=== PATIENT | female | born 1985 | race Caucasian/White ===

== ENCOUNTER → 2019-10-03 08:00 | Outpatient (BNVA) | payer SELFPAY | PROVIDERS: PCP Obstetrics & Gynecology; Visit Provider Obstetrics & Gynecology | DX: Z01.419 Encounter for gynecological examination (general) (routine) without abnormal findings (principal); E03.9 Hypothyroidism, unspecified | CPT/HCPCS: 36415; 80061; 84443 ==

== ENCOUNTER 2019-11-21 18:31 | Emergency (ER) | payer SELFPAY ==
[2019-11-21] VITALS (47 sets, daily range): BP systolic 123–139; BP diastolic 70–106; PULSE 78–104; RESP 11–20; TEMP 37.1; O2SAT 92–96; BMI 38.9
--- NOTE | 2019-11-21 19:18 | W.ED.GENADLT ---
HPI - General Adult General: Chief complaint: General Medical Stated complaint: passed out/flu symptoms Time Seen by Provider: 11/21/19 19:16 History of Present Illness: HPI narrative: Patient is a 34-year-old female who comes to the ED with nausea, vomiting and diarrhea. Symptoms started about 2 weeks ago. She states that she has not been able to eat or drink and keep anything down for the past 2 weeks. She is also complaining of some central abdominal pain that also radiates to the back. She has also had some upper respiratory symptoms such as a cough with green sputum and nasal congestion. Patient describes her vomiting is occurring multiple times a day for the past 2 weeks and also describes the diarrhea frequency the same. She feels like she is getting really dehydrated and that her mouth is really dry. She states that she could possibly be and compare some of her symptoms of nausea and vomiting to her previous first trimester pregnancies. Patient states she has monthly periods. Her last period was about 3 weeks ago. She denies any bloody vaginal discharge but does have some mucus discharge. Patient is felt so weak and dehydrated at these last 2 days she has passed out twice. Patient is also complaining of constipation and acid reflux for the last several months. She reports sometimes she cannot lay flat and has to elevate her head at night to sleep. She'll take Tums to help relieve some of the symptoms. She currently has reflux while she is here in the ED. Associated symptoms: Deny chest pain, dyspnea, headache(s), nausea, rash, palpitations or vomiting Review of Systems Const: Reports: fatigue; Denies: fever or chills Eyes: Denies: change in vision or eye discomfort ENMT: Reports: dry mouth and nasal congestion; Denies: throat pain, painful swallowing or nasal discharge Card: Denies: chest pain, palpitations, edema, swelling of feet/ankles, shortness of breath on exertion or shortness of breath when lying down Resp: Denies: shortness of breath, productive cough or non-productive cough GI: Reports: heartburn/indigestion; Denies: abdominal pain, nausea, vomiting, diarrhea, constipation or blood in stool : Denies: flank pain, painful urination or blood in urine Musc: Denies: neck pain, back pain or extremity swelling Skin/Breast: Denies: rash or new lesion Neuro: Denies: headache, numbness in extremities or weakness in extremities PFSH ED PFSH: Medical History Acquired hypothyroidism Social History Smoking and tobacco status: never smoked Physical Exam Const: COMMON NORMALS: oriented x3 HENMT: COMMON NORMALS: normocephalic HEAD & SCALP: normocephalic MOUTH: moist mucous membranes abnormal (Dry) Details: parched THROAT: posterior oropharynx normal and uvula midline Neck/C-Spine: COMMON NORMALS: supple GENERAL: Yes normal visual inspection Resp: COMMON NORMALS: normal respiratory effort, no retractions, no use of accessory muscles and clear to auscultation bilaterally AUSCULTATION: clear to auscultation bilaterally Cardio: COMMON NORMALS: regular rate, regular rhythm, S1 normal heart sound, S2 normal heart sound, no gallops, no clicks, no murmurs and peripheral pulses 2+ throughout RATE: regular rate RHYTHM: regular rhythm HEART SOUNDS: S1 normal and S2 normal PERIPHERAL PULSES: pulses 2+ throughout GI: COMMON NORMALS: normal to inspection, nondistended, normoactive bowel sounds, soft to palpation and no masses PALPATION: Yes soft and Yes tender (mild) Details: LUQ and RUQ : COMMON NORMALS: Yes no CVA tenderness BLADDER/KIDNEY EXAM: Yes no CVA tenderness Back/Pelvis: COMMON NORMALS: no CVA tenderness Extremity: COMMON NORMALS: normal to inspection and normal capillary refill Neuro: COMMON NORMALS: oriented x3 and moves all extremities Skin: COMMON NORMALS: no rashes or lesions noted GENERAL SKIN EXAM: no rashes or lesions noted and dry skin Course ED course: While here in the ED, patient was given 3 L of fluid and Zofran. She had no episodes of emesis while here in the ED. She reported feeling a lot better after the IV fluids. Vital Signs: Vital signs: Vital Signs Temperature 98.7 F 11/21/19 18:36 Pulse Rate 85 11/22/19 00:05 Respiratory Rate 13 11/21/19 22:30 Blood Pressure 123/70 11/22/19 00:00 Pulse Oximetry 94 11/22/19 00:05 [facility] - General Adult Lab Data: Attestation: I reviewed the patient's lab results. Labs: Lab Results 11/21/19 11/21/19 11/21/19 Range/Units 19:43 19:43 19:43 WBC 5.4 (4.0-10.0) 10^3/ uL RBC 5.24 (4.1-5.3) 10^6/u L Hgb 14.4 (11.5-15.3) g/dL Hct 43.7 (37.0-47.0) % MCV 83.4 (81-99) fL MCH 27.5 L (28.0-34.0) pg MCHC 33.0 (30.0-36.0) g/dL RDW 12.9 (12.1-15.1) % Plt Count 310 (130-400) 10^3/c mm MPV 9.5 (7.4-10.4) fL Neut % (Auto) 63.7 % Lymph % (Auto) 29.8 % [place] % (Auto) 6.1 % Eos % (Auto) 0.0 % Baso % (Auto) 0.2 % Neut # (Auto) 3.5 (1.8-7.7) 10^3/u L Lymph # (Auto) 1.6 (0.8-4.8) 10^3/u L [place] # (Auto) 0.3 (0.2-0.9) 10^3/u L Eos # (Auto) 0.0 (0.0-0.8) 10^3/u L Baso # (Auto) 0.0 (0.0-0.1) 10^3/u L Nucleated RBC % (a uto) 0 % Nucleated RBCs # 0.0 /100WBC Sodium 138 (136-145) mmol/L Potassium 3.0 L (3.5-5.1) mmol/L Chloride 99 (98-107) mmol/L Carbon Dioxide 21 L (22-29) mmol/L Anion Gap 21.0 H (5-19) BUN 10 (6-20) mg/dL Creatinine 0.8 (0.5-0.9) mg/dL GFR Calculation 83.1 L (90-130) mL/min Glucose 107 (65-115) mg/dL POC Glucose (70-110) mg/dL Calcium 9.7 (8.5-10.5) mg/dL Total Bilirubin 0.7 (0.15-1.2) mg/dL AST 41 H (0-32) U/L ALT 45 H (0-33) U/L Alkaline Phosphata se 65 (35-105) IU/L Total Protein 8.5 (6.6-8.7) g/dL Albumin 4.8 (3.5-5.2) g/dL Globulin 3.7 (1.3-4.6) g/dL Lipase 78 H (13-60) U/L HCG, Qual Negative (Negative) Urine Color (Yellow) Urine Appearance (CLEAR) Urine pH (5-7) Ur Specific Gravit y (1.005-1.030) Urine Protein (Negative) Urine Glucose (UA) (Normal) Urine Ketones (Negative) Urine Blood (Negative) Urine Nitrate (Negative) Urine Bilirubin (NEGATIVE) Urine Urobilinogen (Negative) mg/dL Ur Leukocyte Elizabeth ase (Negative) Urine RBC (0-2) /hpf Urine WBC (0-5) /hpf Ur Squamous Epith Cells (0-5) Urine Bacteria (NONE) 11/21/19 11/21/19 Range/Units 21:59 23:00 WBC (4.0-10.0) 10^3/ uL RBC (4.1-5.3) 10^6/u L Hgb (11.5-15.3) g/dL Hct (37.0-47.0) % MCV (81-99) fL MCH (28.0-34.0) pg MCHC (30.0-36.0) g/dL RDW (12.1-15.1) % Plt Count (130-400) 10^3/c mm MPV (7.4-10.4) fL Neut % (Auto) % Lymph % (Auto) % [place] % (Auto) % Eos % (Auto) % Baso % (Auto) % Neut # (Auto) (1.8-7.7) 10^3/u L Lymph # (Auto) (0.8-4.8) 10^3/u L [place] # (Auto) (0.2-0.9) 10^3/u L Eos # (Auto) (0.0-0.8) 10^3/u L Baso # (Auto) (0.0-0.1) 10^3/u L Nucleated RBC % (a uto) % Nucleated RBCs # /100WBC Sodium (136-145) mmol/L Potassium (3.5-5.1) mmol/L Chloride (98-107) mmol/L Carbon Dioxide (22-29) mmol/L Anion Gap (5-19) BUN (6-20) mg/dL Creatinine (0.5-0.9) mg/dL GFR Calculation (90-130) mL/min Glucose (65-115) mg/dL POC Glucose 88 (70-110) mg/dL Calcium (8.5-10.5) mg/dL Total Bilirubin (0.15-1.2) mg/dL AST (0-32) U/L ALT (0-33) U/L Alkaline Phosphata se (35-105) IU/L Total Protein (6.6-8.7) g/dL Albumin (3.5-5.2) g/dL Globulin (1.3-4.6) g/dL Lipase (13-60) U/L HCG, Qual (Negative) Urine Color Yellow (Yellow) Urine Appearance Hazy A (CLEAR) Urine pH 5 (5-7) Ur Specific Gravit y 1.005 (1.005-1.030) Urine Protein Trace (Negative) Urine Glucose (UA) Norm (Normal) Urine Ketones 2+ H (Negative) Urine Blood Neg (Negative) Urine Nitrate Negative (Negative) Urine Bilirubin Neg (NEGATIVE) Urine Urobilinogen Norm (Negative) mg/dL Ur Leukocyte Elizabeth ase Negative (Negative) Urine RBC 0-4 H (0-2) /hpf Urine WBC None (0-5) /hpf Ur Squamous Epith Cells 25-40 H (0-5) Urine Bacteria 1+ H (NONE) Imaging Data^: CT Abd/Pel: Attestation: I personally reviewed and interpreted this imaging study as follows: Radiologist's impression: [address] [address] [address] Scan Report Signed Patient: Kristen Ball Unit #: [id number] : 1985 Age/Sex: 34 / F ADM Date: 11/21/19 Loc: ER Room/Bed: Attending Dr: Ordering Provider/Ordering MD: Bao Bray Date of Service: 11/21/19 Procedure(s): CT abdomen pelvis w con* [id number] Accession Number(s): [id number] Report Number: [id number] PROCEDURE INFORMATION: Exam: CT Abdomen And Pelvis With Contrast Exam date and time: 11/21/2019 9:33 PM Age: 34 years old Clinical indication: Nausea and vomiting; Abdominal pain; Acute; Prior surgery; Surgery date: 6+ months; Surgery type: Cholecystectomy; Additional info: N/v/d and abdom pain TECHNIQUE: Imaging protocol: Computed tomography of the abdomen and pelvis with intravenous contrast. Total DLP: 1700.84 mGy-cm Radiation optimization: All CT scans at this facility use at least one of these dose optimization techniques: automated exposure control; mA and/or kV adjustment per patient size (includes targeted exams where dose is matched to clinical indication); or iterative reconstruction. Contrast material: OMNI 300; Contrast volume: 95 ml; Contrast route: 20G; COMPARISON: OB Limited [id number] 03/29/2018 11:37 AM FINDINGS: Mediastinum: A small hiatal hernia is noted. Liver: Normal. No mass. Gallbladder and bile ducts: The gallbladder has been removed. No biliary ductal dilatation. Pancreas: Normal. No ductal dilation. Spleen: Normal. No splenomegaly. Adrenals: Normal. No mass. Kidneys and ureters: Normal. No hydronephrosis. Stomach and bowel: Mild diffuse colonic wall thickening is appreciated. No intestinal obstruction. Appendix: The appendix is normal. Intraperitoneal space: Unremarkable. No free air. No significant fluid collection. Vasculature: Unremarkable. No abdominal aortic aneurysm. Lymph nodes: Unremarkable. No enlarged lymph nodes. Bladder: Unremarkable as visualized. Reproductive: The uterus and ovaries appear normal. Bones/joints: Unremarkable. No acute fracture. Soft tissues: Unremarkable. CT/CT abdomen pelvis w con* [id number] IMPRESSION: 1. Colitis, which may be infectious or inflammatory. 2. Small hiatal hernia. Radiation Dose CTDIVOL = (mGy): DLP = 1700.84 (mGy-cm) Dictated By: Billy Harris MD Signed By: Billy Harris MD Signed Date/Time: 11/21/192233 DD/ 32 Discharge Plan Discharge Patient Disposition: Home, Self-Care Clinical Impression: Colitis Acid reflux Qualifiers: Esophagitis presence: esophagitis presence not specified Qualified Code(s): K21.9 - Gastro-esophageal reflux disease without esophagitis Condition: Stable Prescriptions: New Zofran 4 mg tablet 4 mg PO Q8H Qty: 20 RF: 0 Flagyl 500 mg tablet 750 mg PO Q8H 7 Days Qty: 31.5 RF: 0 Nexium 20 mg capsule,delayed release(DR/EC) 20 mg PO DAILY Qty: 30 RF: 0 No Action levothyroxine 112 mcg tablet 112 mcg PO DAILY RF: 0 Tylenol 325 mg Tablet 325 mg PO QID PRN (Reason: Pain) RF: 0 ibuprofen 200 mg Tablet 200 mg PO Q6H PRN (Reason: Pain) RF: 0 Discharge Orders: Discharge Order (Routine); Ordered 11/21/19 Ordered By: Bao Bray Referrals: Oumar Haddad MD [Primary Care Provider] - Discharge Diet: Advance as tolerated Discharge Activity: Increase activity as tolerated Patient Instructions: Gastroesophageal Reflux Disease (ED), Infectious Colitis (ED) Activity Restrictions/Additional Instructions: Follow-up with your PCP in 7-10 days for reevaluation. Take the Zofran to help with nausea. Take the prescribed Nexium to help with acid reflux. Take the full course of antibiotic as prescribed. You can take Tylenol or ibuprofen if you have any fevers or pain. Drink plenty of fluids and stay hydrated. Return to the ED if vomiting and diarrhea cannot be controlled and you are showing signs of dehydration. Discharge Date/Time: 11/22/19 00:15 Coding Level of Care Code ED Car Wash Attendant for Shireen Fwd Exam Comprehensive
[2019-11-21] MEDS: sodium chloride 0.9% 1,000 ML 999 ML IV ×3 (19:50→23:16)
[2019-11-21 19:56] LABS: Basophils % 0.2 %; Hematocrit 43.7 % (37.0-47.0); Hemoglobin 14.4 g/dL (11.5-15.3); Lymphocytes # 1.6 10^3/uL (0.8-4.8); Lymphocytes % 29.8 %; Mean Corpuscular Hemoglobin 27.5 pg (28.0-34.0); Mean Corpuscular Volume 83.4 fL (81-99); Mean Platelet Volume 9.5 fL (7.4-10.4); Monocytes # 0.3 10^3/uL (0.2-0.9); Monocytes % 6.1 %; Neutrophils # 3.5 10^3/uL (1.8-7.7); Neutrophils % 63.7 %; Nucleated Red Blood Cells % 0 %; Platelet Count 310 10^3/cmm (130-400); Red Blood Count 5.24 10^6/uL (4.1-5.3); Red Cell Distribution Width 12.9 % (12.1-15.1); White Blood Count 5.4 10^3/uL (4.0-10.0)
[2019-11-21 20:17] LABS: Alanine Aminotransferase 45 U/L (0-33); Albumin Level 4.8 g/dL (3.5-5.2); Alkaline Phosphatase 65 IU/L (35-105); Aspartate Amino Transferase 41 U/L (0-32); Blood Urea Nitrogen 10 mg/dL (6-20); Calcium 9.7 mg/dL (8.5-10.5); Carbon Dioxide 21 mmol/L (22-29); Chloride 99 mmol/L (98-107); Globulin 3.7 g/dL (1.3-4.6); Glomerular Filtration Rate 83.1 mL/min (90-130); Glucose 107 mg/dL (65-115); Lipase 78 U/L (13-60); Sodium 138 mmol/L (136-145); Total Bilirubin 0.7 mg/dL (0.15-1.2); Total Protein 8.5 g/dL (6.6-8.7)
[2019-11-21 20:20] LABS: HCG, Serum Qual Negative (Negative)
--- NOTE | 2019-11-21 20:27 | XRR_ITS ---
PROCEDURE INFORMATION: Exam: XR Chest, 1 View Exam date and time: 11/21/2019 8:57 PM Age: 34 years old Clinical indication: Cough and fever; Prior surgery; Surgery date: 6+ months; Surgery type: Gb TECHNIQUE: Imaging protocol: XR of the chest Views: Frontal portable upright view of the chest. COMPARISON: CR Chest 2 views* [id number] 10/18/2013 7:32 PM FINDINGS: Lungs: The lungs are clear bilaterally. The pulmonary vasculature is normal. Pleural space: No pleural effusion. No pneumothorax. Heart/Mediastinum: The heart is normal in size and contour. Mediastinum: Stable. Bones/joints: Stable. XR/XR chest 1V portable [id number] IMPRESSION: No acute cardiopulmonary abnormality identified.
[2019-11-21] MEDS: ondansetron 2 mg/ML SDV 2 mL 4 MG IVP ×2 (20:44→23:14)
--- NOTE | 2019-11-21 21:16 | CTR_ITS ---
PROCEDURE INFORMATION: Exam: CT Abdomen And Pelvis With Contrast Exam date and time: 11/21/2019 9:33 PM Age: 34 years old Clinical indication: Nausea and vomiting; Abdominal pain; Acute; Prior surgery; Surgery date: 6+ months; Surgery type: Cholecystectomy; Additional info: N/v/d and abdom pain TECHNIQUE: Imaging protocol: Computed tomography of the abdomen and pelvis with intravenous contrast. Total DLP: 1700.84 mGy-cm Radiation optimization: All CT scans at this facility use at least one of these dose optimization techniques: automated exposure control; mA and/or kV adjustment per patient size (includes targeted exams where dose is matched to clinical indication); or iterative reconstruction. Contrast material: OMNI 300; Contrast volume: 95 ml; Contrast route: 20G; COMPARISON: OB Limited [id number] 03/29/2018 11:37 AM FINDINGS: Mediastinum: A small hiatal hernia is noted. Liver: Normal. No mass. Gallbladder and bile ducts: The gallbladder has been removed. No biliary ductal dilatation. Pancreas: Normal. No ductal dilation. Spleen: Normal. No splenomegaly. Adrenals: Normal. No mass. Kidneys and ureters: Normal. No hydronephrosis. Stomach and bowel: Mild diffuse colonic wall thickening is appreciated. No intestinal obstruction. Appendix: The appendix is normal. Intraperitoneal space: Unremarkable. No free air. No significant fluid collection. Vasculature: Unremarkable. No abdominal aortic aneurysm. Lymph nodes: Unremarkable. No enlarged lymph nodes. Bladder: Unremarkable as visualized. Reproductive: The uterus and ovaries appear normal. Bones/joints: Unremarkable. No acute fracture. Soft tissues: Unremarkable. CT/CT abdomen pelvis w con* [id number] IMPRESSION: 1. Colitis, which may be infectious or inflammatory. 2. Small hiatal hernia. Radiation Dose CTDIVOL = (mGy): DLP = 1700.84 (mGy-cm)
[2019-11-21] MEDS: iohexol 300 mg/mL 100 mL Btl IV (21:47)
--- NOTE | 2019-11-21 22:00 | PC.NURSE ---
accu check 88
[2019-11-21 22:02] LABS: Glucose Point of Care 88 mg/dL (70-110)
[2019-11-21] MEDS: lidocaine 2% viscous 15 ML, aluminum-mag hydrox-simethicon 30 ML, sucralfate oral liq 1 GM PO (23:14)
[2019-11-21] MEDS: metroNIDAZOLE 500 MG Tablet 750 MG PO (23:44)
[2019-11-21 23:51] LABS: Protein Urine Trace (Negative); Specific Gravity, Urine 1.005 (1.005-1.030); Urine Appearance Hazy (CLEAR); Urine Color Yellow (Yellow); pH Urine 5 (5-7)
[2019-11-21 23:52] LABS: Bilirubin Urine Neg (NEGATIVE); Blood Urine Neg (Negative); Glucose Urine UA Norm (Normal); Ketones Urine 2+ (Negative); Leukocyte Esterase Urine Negative (Negative); Nitrate Urine Negative (Negative); Urobilinogen Urine Norm (Negative)
[2019-11-22] VITALS: BP 123/70; PULSE 80; O2SAT 93
[2019-11-22] LABS: RBC Urine 0-4 /hpf (0-2)
[2019-11-22 00:01] LABS: Add Urine Culture? No; Bacteria Urine 1+; Squamous Epithelial Cell Urine 25-40 (0-5)
[2019-11-22 00:05] VITALS: PULSE 85; O2SAT 94
== END 2019-11-22 00:15 | disposition home or self-care (01) ==
PROVIDERS: Emergency Provider Physician Assistant; PCP Obstetrics & Gynecology
DX: K52.9 Noninfective gastroenteritis and colitis, unspecified (principal); K21.9 Gastro-esophageal reflux disease without esophagitis; E03.9 Hypothyroidism, unspecified
CPT/HCPCS: 36415; 36416; 71045; 74177; 80053; 81001; 82962; 83690; 84703; 85025; 87040; 96360; 96361; 96365; 96374; 96375; 99284; A9270; J2405; J7030; Q9967

== ENCOUNTER 2020-05-22 11:34 | Emergency (ER) | payer SELFPAY ==
[2020-05-22 12:28] VITALS: BP 167/89; PULSE 90; RESP 14; TEMP 36.9; O2SAT 99; BMI 42.5
--- NOTE | 2020-05-22 12:33 | XRR_ITS ---
PROCEDURE INFORMATION: Exam: XR Chest, 1 View Exam date and time: 05/22/2020 12:47 PM Age: 35 years old Clinical indication: Chest pain; Type not specified TECHNIQUE: Imaging protocol: XR of the chest Views: 1 view. COMPARISON: CR XR chest 1V portable [id number] 11/21/2019 8:45 PM FINDINGS: Lungs: Unremarkable. No consolidation. Pleural space: Unremarkable. No pleural effusion. No pneumothorax. Heart/Mediastinum: Unremarkable. No cardiomegaly. Bones/joints: Unremarkable. XR/XR chest 1V portable [id number] IMPRESSION: No acute findings.
--- NOTE | 2020-05-22 12:34 | ECG_ITS ---
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 Measurements Intervals [place] Rate: 91 P: 60 [place]: 156 QRS: 47 QRSD: 94 T: 4 QT: 364 QTc: 448 Interpretive Statements SINUS RHYTHM POSSIBLE LEFT ATRIAL ENLARGEMENT [-0.1mV P WAVE IN V1/V2] NONSPECIFIC T-WAVE ABNORMALITY No previous ECG available for comparison Electronically Signed On 05-22-2020 18:11:51 CDT by George Juarez M.D. [email or web address]
--- NOTE | 2020-05-22 12:41 | PC.NURSE ---
Patient placed in room at 1238, portable xray at bedside [id number]
[2020-05-22 12:53] VITALS: PULSE 81; RESP 18; O2SAT 98
[2020-05-22 12:55] LABS: Basophils # 0.1 10^3/uL (0.0-0.1); Basophils % 0.7 %; Eosinophils # 0.1 10^3/uL (0.0-0.8); Eosinophils % 1.9 %; Hematocrit 42.4 % (37.0-47.0); Hemoglobin 13.3 g/dL (11.5-15.3); Lymphocytes # 2.2 10^3/uL (0.8-4.8); Lymphocytes % 28.7 %; Mean Corpuscular HGB Conc 31.4 g/dL (30.0-36.0); Mean Corpuscular Volume 86.2 fL (81-99); Mean Platelet Volume 8.6 fL (7.4-10.4); Monocytes # 0.3 10^3/uL (0.2-0.9); Monocytes % 3.3 %; Neutrophils % 65.3 %; Nucleated Red Blood Cells % 0 %; Platelet Count 413 10^3/cmm (130-400); Red Blood Count 4.92 10^6/uL (4.1-5.3); White Blood Count 7.5 10^3/uL (4.0-10.0)
[2020-05-22 13:13] LABS: HCG, Serum Qual Negative (Negative)
[2020-05-22 13:16] LABS: Troponin(5th) Baseline 6 ng/L (0-10)
[2020-05-22 13:21] LABS: Alanine Aminotransferase 30 U/L (0-33); Albumin Level 4.8 g/dL (3.5-5.2); Alkaline Phosphatase 66 IU/L (35-105); Anion Gap 14.8 (5-19); Aspartate Amino Transferase 24 U/L (0-32); Blood Urea Nitrogen 6 mg/dL (6-20); Carbon Dioxide 22 mmol/L (22-29); Chloride 103 mmol/L (98-107); Globulin 3.7 g/dL (1.3-4.6); Glomerular Filtration Rate 115.1 mL/min (90-130); Glucose 93 mg/dL (65-115); Osmolality Calculated 277 mOsm/kg (285-295); Potassium 3.8 mmol/L (3.5-5.1); Sodium 136 mmol/L (136-145); Thyroid Stimulating Hormone 5.38 uIU/mL (0.27-4.20); Total Bilirubin 0.5 mg/dL (0.15-1.2); Total Protein 8.5 g/dL (6.6-8.7)
[2020-05-22 14:02] VITALS: BP 127/85; O2SAT 96
--- NOTE | 2020-05-22 14:03 | W.ED.CHESTPA ---
HPI - Chest Pain General: Chief Complaint: Chest Pain Stated Complaint: SOB CP Time Seen by Provider: 05/22/20 12:34 Source: patient Mode of arrival: ambulatory Limitations: no limitations History of Present Illness: HPI narrative: Patient is a 35-year-old female who presents to ED today with complaints of intermittent bilateral lower arm numbness and tingling over the past 2 months as well as chest pains over the past week. She states the pain in her chest feels like a tight, squeezing, electric sensation. She frequently refers to her heart as aching . She tells me she will often notice palpitations and when she checks her pulse will notice missed or skipped beats. She complains of shortness of breath stating it is oftentimes hard to catch her breath. She was initially seen at a primary care provider's office earlier today and was noted to be hypertensive. Patient states she has no history of hypertension nor does she treat this. She complains of some mild lower extremity swelling. She has not been running fevers. She has no known cardiac or pulmonary history. Patient admittedly is very anxious and a worry wart . MD complaint: chest pain Associated symptoms: Reports dyspnea and palpitations; Deny abdominal pain, fever(s), nausea, syncope or vomiting Review of Systems Const: Denies: fever(s) or chills Eyes: Denies: change in vision or blurry vision ENMT: Denies: throat pain, enlarged tonsils or odynophagia Card: Reports: chest pain, palpitations, irregular heart rhythm, edema and swelling of feet/ankles; Denies: lightheadedness, syncope, pre-syncope, dyspnea on exertion, orthopnea, leg pain with exertion or acrocyanosis Resp: Reports: dyspnea; Denies: productive cough, non-productive cough, pain on inspiration, hemoptysis or chest congestion GI: Denies: abdominal pain, nausea, vomiting, heartburn or diarrhea : Denies: flank pain, difficulty voiding, dysuria, urinary frequency, urinary urgency or urinary hesitancy Musc: Denies: neck pain, back pain, extremity pain, extremity swelling, joint pain or joint swelling Skin/Breast: Denies: rash Neuro: Reports: numbness in extremities (bilateral arms-intermittently); Denies: headache(s), weakness in extremities, frequent falls, dizziness, vertigo or Slurred speech present PFSH ED PFSH: Medical History (Updated 05/22/20 @ 15:46 by GREGG Figueredo) Acquired hypothyroidism Social History Smoking and tobacco status: never smoked Physical Exam Const: COMMON NORMALS: no acute distress, patient oriented x3, no limitations and alert GENERAL APPEARANCE: cooperative and anxious NUTRITIONAL APPEARANCE: obese ORIENTATION/CONSCIOUSNESS: Yes oriented to person, Yes oriented to place and Yes oriented to time HENMT: COMMON NORMALS: normocephalic and atraumatic HEAD & SCALP: normocephalic and atraumatic Neck/C-Spine: COMMON NORMALS: full ROM, no lymphadenopathy and no meningeal signs Chest: COMMONS NORMALS: normal inspection of the chest and normal palpation of entire chest wall Resp: COMMON NORMALS: normal respiratory effort and clear to auscultation bilaterally AUSCULTATION: clear to auscultation bilaterally Cardio: COMMON NORMALS: regular rate and regular rhythm RATE: regular rate RHYTHM: regular rhythm GI: COMMON NORMALS: Normal to inspection, nondistended, normoactive bowel sounds present, Soft to palpation, non-tender, No hepatosplenomegaly present and no masses PALPATION: Yes Soft to palpation and Yes No hepatosplenomegaly present : COMMON NORMALS: Yes no CVA tenderness BLADDER/KIDNEY EXAM: Yes no CVA tenderness Back/Pelvis: COMMON NORMALS: no CVA tenderness, thoracic and lumbar spine normal to inspection, no thoracic nor lumbar tenderness and thoraco-lumbar ROM normal Extremity: COMMON NORMALS: normal to inspection and full ROM GENERAL: Yes normal exam except as noted Neuro: CAROL COMA SCALE: document GCS findings Guthrie coma scale eye opening: Spontaneous Guthrie coma scale verbal response: Orientated Carol coma scale motor response: Obey commands Carol coma scale total score: 15 COMMON NORMALS: patient oriented x3 SENSORIUM/ORIENTATION: Yes alert, Yes oriented to person, Yes oriented to place and Yes oriented to time MENINGEAL SIGNS: Yes no meningeal signs Skin: COMMON NORMALS: no rashes or lesions noted GENERAL SKIN EXAM: no rashes or lesions noted Course Vital Signs: Vital signs: Vital Signs Temperature 98.4 F 05/22/20 12:28 Pulse Rate 106 H 05/22/20 15:59 Respiratory Rate 17 05/22/20 15:59 Blood Pressure 154/99 05/22/20 15:59 Pulse Oximetry 97 05/22/20 15:59 MDM - Chest Pain MDM Narrative: Medical decision making narrative: Patient's vitals apart from hypertension are normal. Labs are non-concerning at this time. She has a negative d-dimer. BNP is normal. Baseline and repeat troponin are normal. CXR is normal. EKG without ischemic changes. TSH is mildly elevated. At this time her HEART score is low enough for her to be discharged home. I will go ahead and place information with case management to get her set up with a Holter monitor. Recommend she follow-up with PCP for re-evaluation of her hypertension. Lab Data: Labs: Lab Results 05/22/20 05/22/20 05/22/20 Range/Units 12:48 12:48 12:48 WBC 7.5 (4.0-10.0) 10^3/ uL RBC 4.92 (4.1-5.3) 10^6/u L Hgb 13.3 (11.5-15.3) g/dL Hct 42.4 (37.0-47.0) % MCV 86.2 (81-99) fL MCH 27.0 L (28.0-34.0) pg MCHC 31.4 (30.0-36.0) g/dL RDW 13.0 (12.1-15.1) % Plt Count 413 H (130-400) 10^3/c mm MPV 8.6 (7.4-10.4) fL Neut % (Auto) 65.3 % Lymph % (Auto) 28.7 % [place] % (Auto) 3.3 % Eos % (Auto) 1.9 % Baso % (Auto) 0.7 % Neut # (Auto) 4.90 (1.8-7.7) 10^3/u L Lymph # (Auto) 2.2 (0.8-4.8) 10^3/u L [place] # (Auto) 0.3 (0.2-0.9) 10^3/u L Eos # (Auto) 0.1 (0.0-0.8) 10^3/u L Baso # (Auto) 0.1 (0.0-0.1) 10^3/u L Nucleated RBC % (a uto) 0 % Nucleated RBCs # 0.0 /100WBC D-Dimer (0-0.59) ug/mIFE U Sodium 136 (136-145) mmol/L Potassium 3.8 (3.5-5.1) mmol/L Chloride 103 (98-107) mmol/L Carbon Dioxide 22 (22-29) mmol/L Anion Gap 14.8 (5-19) BUN 6 (6-20) mg/dL Creatinine 0.6 (0.5-0.9) mg/dL GFR Calculation 115.1 (90-130) mL/min Glucose 93 (65-115) mg/dL Calculated Osmolal ity 277 L (285-295) mOsm/k g Calcium 9.0 (8.5-10.5) mg/dL Total Bilirubin 0.5 (0.15-1.2) mg/dL AST 24 (0-32) U/L ALT 30 (0-33) U/L Alkaline Phosphata se 66 (35-105) IU/L Troponin T Baselin e 6 (0-10) ng/L Troponin T 120 Min [place] (0-10) ng/L Delta Troponin T (0-10) ABS# NT-Pro-B Natriuret Pep (0-125) pg/mL Total Protein 8.5 (6.6-8.7) g/dL Albumin 4.8 (3.5-5.2) g/dL Globulin 3.7 (1.3-4.6) g/dL Lipase (13-60) U/L TSH 5.38 H (0.27-4.20) uIU/ mL HCG, Qual (Negative) 05/22/20 05/22/20 05/22/20 Range/Units 12:48 12:48 12:48 WBC (4.0-10.0) 10^3/ uL RBC (4.1-5.3) 10^6/u L Hgb (11.5-15.3) g/dL Hct (37.0-47.0) % MCV (81-99) fL MCH (28.0-34.0) pg MCHC (30.0-36.0) g/dL RDW (12.1-15.1) % Plt Count (130-400) 10^3/c mm MPV (7.4-10.4) fL Neut % (Auto) % Lymph % (Auto) % [place] % (Auto) % Eos % (Auto) % Baso % (Auto) % Neut # (Auto) (1.8-7.7) 10^3/u L Lymph # (Auto) (0.8-4.8) 10^3/u L [place] # (Auto) (0.2-0.9) 10^3/u L Eos # (Auto) (0.0-0.8) 10^3/u L Baso # (Auto) (0.0-0.1) 10^3/u L Nucleated RBC % (a uto) % Nucleated RBCs # /100WBC D-Dimer <= 0.27 (0-0.59) ug/mIFE U Sodium (136-145) mmol/L Potassium (3.5-5.1) mmol/L Chloride (98-107) mmol/L Carbon Dioxide (22-29) mmol/L Anion Gap (5-19) BUN (6-20) mg/dL Creatinine (0.5-0.9) mg/dL GFR Calculation (90-130) mL/min Glucose (65-115) mg/dL Calculated Osmolal ity (285-295) mOsm/k g Calcium (8.5-10.5) mg/dL Total Bilirubin (0.15-1.2) mg/dL AST (0-32) U/L ALT (0-33) U/L Alkaline Phosphata se (35-105) IU/L Troponin T Baselin e (0-10) ng/L Troponin T 120 Min [place] (0-10) ng/L Delta Troponin T (0-10) ABS# NT-Pro-B Natriuret Pep 47 (0-125) pg/mL Total Protein (6.6-8.7) g/dL Albumin (3.5-5.2) g/dL Globulin (1.3-4.6) g/dL Lipase (13-60) U/L TSH (0.27-4.20) uIU/ mL HCG, Qual Negative (Negative) 05/22/20 05/22/20 Range/Units 12:48 14:58 WBC (4.0-10.0) 10^3/ uL RBC (4.1-5.3) 10^6/u L Hgb (11.5-15.3) g/dL Hct (37.0-47.0) % MCV (81-99) fL MCH (28.0-34.0) pg MCHC (30.0-36.0) g/dL RDW (12.1-15.1) % Plt Count (130-400) 10^3/c mm MPV (7.4-10.4) fL Neut % (Auto) % Lymph % (Auto) % [place] % (Auto) % Eos % (Auto) % Baso % (Auto) % Neut # (Auto) (1.8-7.7) 10^3/u L Lymph # (Auto) (0.8-4.8) 10^3/u L [place] # (Auto) (0.2-0.9) 10^3/u L Eos # (Auto) (0.0-0.8) 10^3/u L Baso # (Auto) (0.0-0.1) 10^3/u L Nucleated RBC % (a uto) % Nucleated RBCs # /100WBC D-Dimer (0-0.59) ug/mIFE U Sodium (136-145) mmol/L Potassium (3.5-5.1) mmol/L Chloride (98-107) mmol/L Carbon Dioxide (22-29) mmol/L Anion Gap (5-19) BUN (6-20) mg/dL Creatinine (0.5-0.9) mg/dL GFR Calculation (90-130) mL/min Glucose (65-115) mg/dL Calculated Osmolal ity (285-295) mOsm/k g Calcium (8.5-10.5) mg/dL Total Bilirubin (0.15-1.2) mg/dL AST (0-32) U/L ALT (0-33) U/L Alkaline Phosphata se (35-105) IU/L Troponin T Baselin e (0-10) ng/L Troponin T 120 Min [place] 6.00 (0-10) ng/L Delta Troponin T 0 (0-10) ABS# NT-Pro-B Natriuret Pep (0-125) pg/mL Total Protein (6.6-8.7) g/dL Albumin (3.5-5.2) g/dL Globulin (1.3-4.6) g/dL Lipase 23 (13-60) U/L TSH (0.27-4.20) uIU/ mL HCG, Qual (Negative) Discharge Plan Discharge Patient Disposition: Home Clinical Impression: Non-cardiac chest pain, Heart palpitations Hypertension Qualifiers: Hypertension type: unspecified Qualified Code(s): I10 - Essential (primary) hypertension Condition: Stable Prescriptions: New metoprolol succinate 25 mg tablet extended release 24 hr 25 mg PO DAILY Qty: 30 RF: 0 No Action levothyroxine 112 mcg tablet 112 mcg PO DAILY RF: 0 acetaminophen [Tylenol] 325 mg Tablet 325 mg PO QID PRN (Reason: Pain) RF: 0 ibuprofen 200 mg Tablet 200 mg PO Q6H PRN (Reason: Pain) RF: 0 esomeprazole magnesium [Nexium] 20 mg capsule,delayed release(DR/EC) 20 mg PO DAILY Qty: 30 RF: 0 Zofran 4 mg tablet 4 mg PO Q8H PRN (Reason: Nausea) RF: 0 Discharge Orders: Discharge Order (Routine); Ordered 05/22/20 Ordered By: Sharri Navarrete Referrals: Belkys Diaz MD [Primary Care Provider] - Patient Instructions: Heart Palpitations, Hypertension (ED), Noncardiac Chest Pain (ED) Activity Restrictions/Additional Instructions: As discussed I have placed your information with case management to get you set up with a Holter monitor. They should be in contact with you shortly. We will have these results faxed to Dr. Diaz. Please follow-up with their office for further evaluation of your high blood pressure. I will place you on a low-dose of metoprolol which should help with your blood pressure as well as your heart palpitations. Please keep a blood pressure log (take blood pressure once in the morning and once in the evening) to discuss with Dr. Diaz so she may adjust medications as needed. 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
[2020-05-22 14:19] LABS: D Dimer <= 0.27 ug/mIFEU (0-0.59)
[2020-05-22 14:30] VITALS: BP 140/100; O2SAT 97
--- NOTE | 2020-05-22 14:34 | ECG_ITS ---
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 Measurements Intervals [place] Rate: 86 P: 59 RI: 160 QRS: 39 QRSD: 89 T: 18 QT: 374 QTc: 448 Interpretive Statements SINUS RHYTHM NONSPECIFIC T-WAVE ABNORMALITY Compared to ECG 05/22/2020 12:26:11 No significant changes Electronically Signed On 05-22-2020 18:17:27 CDT by George Juarez M.D. [id number] f
[2020-05-22 14:45] LABS: NT Pro B Type Natriuretic Pept 47 pg/mL (0-125)
[2020-05-22 14:54] LABS: Lipase 23 U/L (13-60)
[2020-05-22 15:38] LABS: Troponin 5 2HR Delta 0 ABS# (0-10)
[2020-05-22 15:59] VITALS: BP 154/99; PULSE 106; RESP 17; O2SAT 97
--- NOTE | 2020-05-23 16:41 | DCPLANNER ---
environmental services manager had message to schedule a halter monitor for patient. environmental services manager faxed order to [facility], will call for appointment information.
--- NOTE | 2020-05-24 15:34 | DCPLANNER ---
Patient has a follow up appointment scheduled for Wednesday, May 27, 2020 at 2:30. Clinic will call patient with appointment information.
--- NOTE | 2020-06-11 13:46 | DCPLANNER ---
Patient had an appointment scheduled for 05.27.20 with [facility] for a 24 hour monitor - patient did not attend appointment.
== END 2020-05-22 15:58 | disposition home or self-care (01) ==
PROVIDERS: Emergency Provider Physician Assistant; PCP Family Medicine
DX: R07.89 Other chest pain (principal); R00.2 Palpitations; I10 Essential (primary) hypertension
CPT/HCPCS: 12345; 36415; 71045; 80053; 83690; 83880; 84443; 84484; 84703; 85025; 85378; 93005; 99282; 99283

== ENCOUNTER 2021-03-18 06:42 | Outpatient (CLI) | payer OTHER, SELFPAY ==
--- NOTE | 2021-03-18 | USCV_ITS ---
GiacomoKristen lay Age: 35 Gender: F : 1985 Exam Date: 03/18/2021 07:27 Ordering Phys: Jarek Membreno DO Technologist: Adelina Botello Exam Location: [facility] [place] Indication: TACHY BP: 132 / 78 HR: 79 Rhythm: Sinus Technical Quality: Adequate MEASUREMENTS (Male / Female) Normal Values 2D ECHO LV Diastolic Diameter PLAX 3.5 cm 4.2 - 5.9 / 3.9 - 5.3 cm LV Systolic Diameter PLAX 2.1 cm LV Chamber Size 4.1 cm IVS Diastolic Thickness 0.9 cm 0.6 - 1.0 / 0.6 - 0.9 cm IVS Systolic Thickness 1.5 cm LVPW Diastolic Thickness 1.3 cm 0.6 - 1.0 / 0.6 - 0.9 cm LVPW Systolic Thickness 1.4 cm RV Chamber Size 2.5 cm LVOT Diameter 2.0 cm LV Ejection Fraction 2D Teich 69.9 % LV Ejection Fraction MOD 2C 41.6 % LV Ejection Fraction 2C AL 41.1 % LA Diameter 3.4 cm LA Width 3.1 cm LA Height 4.6 cm RA Width 3.0 cm RA Height 4.0 cm Aorta at Sinotubular Diameter 3.0 cm M-MODE LV Diastolic Diameter MM 5.3 cm 4.2 - 5.9 / 3.9 - 5.3 cm LV Systolic Diameter MM 3.5 cm LV Ejection Fraction MM Teich 63.6 % IVS Diastolic Thickness MM 0.7 cm 0.6 - 1.0 / 0.6 - 0.9 cm IVS Systolic Thickness MM 1.1 cm LVPW Diastolic Thickness MM 0.9 cm 0.6 - 1.0 / 0.6 - 0.9 cm LVPW Systolic Thickness MM 1.6 cm RV Diastolic Diameter MM 1.8 cm Aortic Annulus Diameter 3.1 cm LA Ao Ratio MM 1.2 MV E Point Septal Separation 0.7 cm DOPPLER AV Peak Velocity 135.3 cm/s LVOT Peak Velocity 90.7 cm/s AV Area Cont Eq vti 2.1 cm squared AV Area Cont Eq pk 2.1 cm squared MV Area PHT 3.3 cm squared Mitral E to A Ratio 1.5 MV E' Velocity 59.0 cm/s Mitral E to MV E' Ratio 8.3 Mitral E to LV E' Lateral Ratio 8.5 Mitral E to LV E' Septal Ratio 8.2 TR Peak Velocity 170.8 cm/s TR Peak Gradient 11.7 mmHg TR Mean Velocity 132.8 cm/s TR Mean Gradient 7.4 mmHg TR Velocity Time Integral 36.0 cm TV Peak E Velocity 65.7 cm/s Right Atrial Pressure 3.0 mmHg Pulmonary Artery Systolic Pressu 14.7 mmHg PV Peak Velocity 71.0 cm/s RV Acceleration Time 0.1 s RV Ejection Time 0.3 s RV AcT/ET 0.2 FINDINGS Left Ventricle Normal left ventricular size and systolic function, EF 56 %. No regional wall motion abnormalities. Right Ventricle The right ventricle is normal in size and function. Right Atrium The right atrium is normal in size. Left Atrium The left atrium is normal in size. Mitral Valve No gross abnormalities noted Aortic Valve No gross abnormalities noted. Tricuspid Valve No tricuspid valve regurgitation. Pulmonic Valve Pulmonic valve not well visualized. Pericardium Normal pericardium without effusion. Aorta Normal ascending aorta dimension. CONCLUSIONS Normal left ventricular size and systolic function, EF 56 %. No regional wall motion abnormalities. Normal chamber sizes. No tricuspid valve regurgitation. There is no pericardial effusion. There are no intracardiac masses. No previous study is available for comparison. Dr Nereyda Leon MD FACC (Electronically Signed) Final Date: 18 March 2021 18:59 S
== END 2021-03-18 06:43 | disposition home or self-care (01) ==
PROVIDERS: PCP Family Medicine; Visit Provider Electrodiagnostic Medicine
DX: R00.0 Tachycardia, unspecified (principal)
CPT/HCPCS: 93306

== ENCOUNTER 2023-02-02 09:00 | Outpatient (CLI) | payer OTHER, SELFPAY | END 2023-02-02 09:01 | disposition home or self-care (01) | LOC: SLEEP 02-03 09:19 | PROVIDERS: PCP Electrodiagnostic Medicine; Visit Provider Electrodiagnostic Medicine | DX: G47.33 Obstructive sleep apnea (adult) (pediatric) (principal); G47.10 Hypersomnia, unspecified | CPT/HCPCS: G0399 ==

== ENCOUNTER 2024-05-02 14:57 | Emergency (ER) | payer OTHER, SELFPAY ==
--- NOTE | 2024-05-02 14:59 | ECG_ITS ---
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 Measurements Intervals [place] Rate: 102 P: 55 MT: 131 QRS: 41 QRSD: 86 T: 42 QT: 338 QTc: 441 Interpretive Statements SINUS TACHYCARDIA POSSIBLE LEFT ATRIAL ENLARGEMENT [-0.1mV P-WAVE IN V1/V2] NONSPECIFIC ST & T-WAVE ABNORMALITY Compared to ECG 05/22/2020 14:33:13 Sinus rhythm no longer present T-wave abnormality still present Electronically Signed On 05-02-2024 18:10:40 CDT by George Juarez M.D. [id number]
--- NOTE | 2024-05-02 15:07 | XRR_ITS ---
PROCEDURE INFORMATION: Exam: XR Chest Exam date and time: 05/02/2024 3:43 PM Age: 39 years old Clinical indication: Pain; Angina pectoris; Additional info: Cp TECHNIQUE: Imaging protocol: Radiologic exam of the chest. Views: 1 view. COMPARISON: CR XR chest 1V portable [id number] 05/22/2020 12:54 PM FINDINGS: Lungs: No focal consolidation or other acute appearing pulmonary opacity. Pleural spaces: No pleural effusion or pneumothorax noted. Heart/Mediastinum: There is no cardiomegaly. Bones/joints: Unremarkable. No acute osseous abnormality. Intraperitoneal space: There is no free intraperitoneal gas. XR/XR chest 1V portable [id number] IMPRESSION: No acute cardiopulmonary disease.
[2024-05-02 15:12] VITALS: BP 145/88; PULSE 107; TEMP 37.2; O2SAT 98; BMI 48.6
[2024-05-02 15:51] LABS: Basophils # 0.1 10^3/uL (0.0-0.1); Basophils % 0.6 %; Eosinophils # 0.3 10^3/uL (0.0-0.8); Eosinophils % 3.2 %; Hematocrit 37.6 % (36-47); Lymphocytes # 2.3 10^3/uL (0.8-4.8); Lymphocytes % 26.4 %; Mean Corpuscular HGB Conc 29.8 g/dL (30-55); Mean Corpuscular Hemoglobin 22.5 pg (27-33); Mean Corpuscular Volume 75.5 fl (85-98); Mean Platelet Volume 8.6 fL (7.4-10.4); Monocytes # 0.4 10^3/uL (0.2-0.9); Monocytes % 4.2 %; Neutrophils # 5.57 10^3/uL (1.8-7.7); Neutrophils % 65.2 %; Nucleated Red Blood Cells % 0 %; Platelet Count 524 10^3/cmm (157-399); Red Blood Count 4.98 10^6/uL (3.85-5.65); Red Cell Distribution Width 16.2 % (12.1-15.1); White Blood Count 8.53 10^3/uL (3.29-11.43)
[2024-05-02 16:03] LABS: Troponin(5th) Baseline < 6 ng/L (0-10)
[2024-05-02 16:05] LABS: Alanine Aminotransferase 116 U/L (0-33); Albumin Level 4.7 g/dL (3.5-5.2); Alkaline Phosphatase 85 U/L (35-105); Anion Gap 19.3 (5-19); Aspartate Amino Transferase 99 U/L (0-32); Blood Urea Nitrogen 8 mg/dL (6-20); Carbon Dioxide 23 mmol/L (22-29); Chloride 101 mmol/L (98-107); Creatinine Clr Calc Pharmacy 164.8356; Globulin 3.8 g/dL (1.3-4.6); Glomerular Filtration Rate 112.5 mL/min (90-130); Glucose 105 mg/dL (65-115); Osmolality Calculated 287 mOsm/kg (285-295); Potassium 4.3 mmol/L (3.5-5.1); Sodium 139 mmol/L (136-145); Total Bilirubin 0.4 mg/dL (0.15-1.2); Total Protein 8.5 g/dL (6.6-8.7)
[2024-05-02 16:17] VITALS: BP 159/104; PULSE 108; O2SAT 97
--- NOTE | 2024-05-02 16:21 | W.ED.CHESTPA ---
HPI - Chest Pain General: Chief Complaint: Chest Pain Stated Complaint: CP Time Seen by Provider: 05/02/24 15:20 History of Present Illness: 39-year-old female presents emergency room complaining of intermittent palpitations and chest discomfort. She also had variations pain elevated blood pressure and hypotension earlier today she took her blood pressure at home and it was 70/40. She is on metoprolol and has been taking it regularly. She notes that certain position she will get more of a sensation of palpitations. She also has a history of hypothyroidism she has not recently changed her medication. No family history of early heart disease no history of DVT or PE she is not on any anticoagulants. Associated symptoms: Reports palpitations; Deny abdominal pain, dyspnea or fever(s) Review of Systems Const: Denies: fever(s) or chills Card: Reports: palpitations; Denies: chest pain Resp: Denies: dyspnea GI: Denies: abdominal pain : Denies: dysuria, urinary frequency or urinary urgency Musc: Denies: neck pain or back pain Skin/Breast: Denies: rash PFSH ED PFSH: Medical History Acquired hypothyroidism Hypertension Family History Other CAD (coronary artery disease) Hyperlipidemia Social History Smoking and tobacco/nicotine status: never used tobacco/nicotine Physical Exam Const: COMMON NORMALS: no acute distress GENERAL APPEARANCE: cooperative and comfortable ORIENTATION/CONSCIOUSNESS: Yes awake, Yes oriented to person, Yes oriented to place and Yes oriented to time HENMT: COMMON NORMALS: normocephalic, atraumatic and hearing grossly normal bilaterally HEAD & SCALP: normocephalic and atraumatic Resp: COMMON NORMALS: normal respiratory effort, No retractions, No use of accessory muscles and clear to auscultation bilaterally AUSCULTATION: clear to auscultation bilaterally Cardio: COMMON NORMALS: regular rate, regular rhythm and No murmurs present (Cardio) RATE: regular rate RHYTHM: regular rhythm GI: COMMON NORMALS: Soft to palpation and No hepatosplenomegaly present AUSCULTATION: Yes normoactive bowel sounds PALPATION: Yes Soft to palpation, No Tenderness to palpation present (GI), No Guarding due to palpation present (GI) and Yes No hepatosplenomegaly present Extremity: COMMON NORMALS: normal to inspection, capillary refill normal, no clubbing, cyanosis or edema, no calf tenderness and no pedal edema Neuro: SENSORIUM/ORIENTATION: Yes oriented to person, Yes oriented to place and Yes oriented to time Skin: COMMON NORMALS: no rashes or lesions noted GENERAL SKIN EXAM: no rashes or lesions noted Course Vital Signs: Vital signs: Vital Signs Temperature 99 F 05/02/24 15:12 Pulse Rate 108 H 05/02/24 16:17 Blood Pressure 159/104 05/02/24 16:17 Pulse Oximetry 97 05/02/24 16:17 Oxygen Delivery Me thod Room Air 05/02/24 16:17 MDM - Chest Pain Medical Decision Making Patient had some PACs I reviewed her Holter monitor from 3 years ago showed PACs but no arrhythmias. She is complaining of variations between low blood pressure and high blood pressure tachycardia and bradycardia. Will have her hold her hydrochlorothiazide decrease her metoprolol to half and add amlodipine to see if that helps hydrochlorothiazide may be aggravating things. I did discuss with her however that by history switching to a slightly lower dose of metoprolol for a time she may experience more of the PACs and PVCs. Strongly encouraged her to follow-up with her primary care doctor within the next 2 weeks to reevaluate medication adjustments will also set her up for another 72-hour Holter monitor to ensure there is no new underlying arrhythmias. Medical Records I reviewed the patient's medical records. Lab Data I reviewed the patient's lab results. 05/02/24 15:31 05/02/24 15:31 Laboratory Results WBC 8.53 10^3/uL (3.29-11.43) 05/02/24 15:31 RBC 4.98 10^6/uL (3.85-5.65) 05/02/24 15:31 Hgb 11.20 g/dL (11.27-16.99) L 05/02/24 15:31 Hct 37.6 % (36-47) 05/02/24 15:31 MCV 75.5 fl (85-98) L 05/02/24 15:31 MCH 22.5 pg (27-33) L 05/02/24 15:31 MCHC 29.8 g/dL (30-55) L 05/02/24 15:31 RDW 16.2 % (12.1-15.1) H 05/02/24 15:31 Plt Count 524 10^3/cmm (157-399) H 05/02/24 15:31 MPV 8.6 fL (7.4-10.4) 05/02/24 15:31 Neut % (Auto) 65.2 % 05/02/24 15: Lymph % (Auto) 26.4 % 05/02/24 15:31 [place] % (Auto) 4.2 % 05/02/24 15:31 Eos % (Auto) 3.2 % 05/02/24 15: Baso % (Auto) 0.6 % 05/02/24 15: Neut # (Auto) 5.57 10^3/uL (1.8-7.7) 05/02/24 15: Lymph # (Auto) 2.3 10^3/uL (0.8-4.8) 05/02/24 15:31 [place] # (Auto) 0.4 10^3/uL (0.2-0.9) 05/02/24 15: Eos # (Auto) 0.3 10^3/uL (0.0-0.8) 05/02/24 15: Baso # (Auto) 0.1 10^3/uL (0.0-0.1) 05/02/24 15: Nucleated RBC % (auto) 0 % 05/02/24 15: Nucleated RBCs # 0.0 /100WBC 05/02/24 15:31 Sodium 139 mmol/L (136-145) 05/02/24 15:31 Potassium 4.3 mmol/L (3.5-5.1) 05/02/24 15: Chloride 101 mmol/L (98-107) 05/02/24 15: Carbon Dioxide 23 mmol/L (22-29) 05/02/24 15:31 Anion Gap 19.3 (5-19) H 05/02/24 15:31 BUN 8 mg/dL (6-20) 05/02/24 15:31 Creatinine 0.6 mg/dL (0.5-0.9) 05/02/24 15:31 GFR Calculation 112.5 mL/min (90-130) 05/02/24 15:31 Glucose 105 mg/dL (65-115) 05/02/24 15:31 Calculated Osmolality 287 mOsm/kg (285-295) 05/02/24 15:31 Calcium 10.0 mg/dL (8.5-10.5) 05/02/24 15:31 Total Bilirubin 0.4 mg/dL (0.15-1.2) 05/02/24 15:31 AST 99 U/L (0-32) H 05/02/24 15:31 ALT 116 U/L (0-33) H 05/02/24 15:31 Alkaline Phosphatase 85 U/L (35-105) 05/02/24 15:31 Troponin T Baseline < 6 ng/L (0-10) 05/02/24 15:31 Troponin T 120 Minute 6.00 ng/L (0-10) 05/02/24 16:58 Delta Troponin T 0.70322 ABS# (0-10) 05/02/24 16:58 Total Protein 8.5 g/dL (6.6-8.7) 05/02/24 15:31 Albumin 4.7 g/dL (3.5-5.2) 05/02/24 15:31 Globulin 3.8 g/dL (1.3-4.6) 05/02/24 15:31 All radiology interpretation(s) finalized by discharge Discharge Plan Discharge Patient Disposition: Home Clinical Impression: Heart palpitations, Acquired hypothyroidism, Hypertension Condition: Stable Prescriptions: New amlodipine 5 mg tablet 5 mg PO DAILY Qty: 30 0RF Changed metoprolol succinate 25 mg tablet extended release 24 hr 25 mg PO DAILY Qty: 30 0RF No Action cholecalciferol (vitamin D3) 1,250 mcg (50,000 unit) capsule 1,250 mcg PO .weekly hydrochlorothiazide 25 mg tablet 25 mg PO DAILY levothyroxine [Synthroid] 75 mcg tablet 75 mcg PO DAILY escitalopram oxalate [Lexapro] 5 mg tablet 5 mg PO DAILY acetaminophen [Tylenol] 325 mg Tablet 325 mg PO QID PRN (Reason: Pain) ibuprofen 200 mg Tablet 200 mg PO Q6H PRN (Reason: Pain) esomeprazole magnesium [Nexium] 20 mg capsule,delayed release(DR/EC) 20 mg PO DAILY Qty: 30 0RF Zofran 4 mg tablet 4 mg PO Q8H PRN (Reason: Nausea) Discharge Orders: Discharge ED (Routine); Ordered 05/02/24 Ordered By: Tj Lozano Referrals: Jarek Membreno, [Primary Care Provider] - Discharge Diet: Usual diet Discharge Activity: Increase activity as tolerated Patient Instructions: Opioid Safety, Pain Management Activity Restrictions/Additional Instructions: Thank you for choosing [facility] for your healthcare needs today. It is very important that you follow up as instructed or that you return to the Emergency Department should you have concerns or if your condition changes or worsens in any way. You were seen today for palpitations, heart rate and blood pressure issues. Recommend decreasing your metoprolol to 25 mg once daily, hold your hydrochlorothiazide and instead take amlodipine 5 mg daily. Within the next 2 weeks she should follow-up with Dr. Membreno to reevaluate these medication changes. Additionally case operator will make arrangements for you to have a 72-hour Holter monitor. Your previous Holter monitor done in 2020 showed PACs which are benign. Coding Level of Care Code ED Stope Miner for Shireen Benitez
--- NOTE | 2024-05-02 17:07 | ECG_ITS ---
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 Measurements Intervals [place] Rate: 101 P: 51 DC: 155 QRS: 40 QRSD: 90 T: 20 QT: 347 QTc: 451 Interpretive Statements SINUS TACHYCARDIA POSSIBLE LEFT ATRIAL ENLARGEMENT [-0.1mV P-WAVE IN V1/V2] NONSPECIFIC T-WAVE ABNORMALITY Compared to ECG 05/02/2024 14:59:26 No significant changes Electronically Signed On 05-02-2024 18:10:58 CDT by George Juarez M.D. [id number]
[2024-05-02 17:32] LABS: Troponin 5 2HR Delta 0.00001 ABS# (0-10)
[2024-05-02 18:02] VITALS: BP 144/102; PULSE 92; RESP 18; O2SAT 97
== END 2024-05-02 18:06 | disposition home or self-care (01) ==
PROVIDERS: Emergency Medicine; Emergency Provider Family Medicine; PCP Electrodiagnostic Medicine
DX: R00.2 Palpitations (principal); I10 Essential (primary) hypertension; E03.9 Hypothyroidism, unspecified
CPT/HCPCS: 36415; 71045; 80053; 84484; 85025; 93005; 99285

== ENCOUNTER 2024-05-17 10:03 | Emergency (ER) | payer OTHER, SELFPAY ==
[2024-05-17 10:56] VITALS: BP 138/104; PULSE 100; RESP 18; TEMP 37.1; O2SAT 98; BMI 47.8
--- NOTE | 2024-05-17 10:59 | W.ED.NAVMDI ---
HPI - Nausea/Vomiting/Diarrhea General: Chief complaint: Nausea/Vomiting/Diarrhea Stated complaint: n/v Time Seen by Provider: 05/17/24 10:08 Source: patient Mode of arrival: ambulatory Limitations: no limitations History of Present Illness: 39-year-old female states that she got food poisoning 3 days ago states she been having nausea vomiting since then. States she has not been able to tolerate any p.o. and feels like she is getting dehydrated. She denies any fever she has had some abdominal cramping denies any severe abdominal pain. Denies any dysuria Associated nausea: Yes Associated symtoms: Reports nausea; Denies chest pain, dysuria or headache(s) Related Data Home Medications Medication Instructions Recorded Confirmed acetaminophen 325 mg tablet 325 mg PO QID PRN Pain 11/21/19 05/17/24 (Tylenol) ibuprofen 200 mg tablet 200 mg PO Q6H PRN Pain 11/21/19 05/17/24 cholecalciferol (vitamin D3) 1,250 1,250 mcg PO .weekly 04/16/21 05/17/24 mcg (50,000 unit) capsule hydrochlorothiazide 25 mg tablet 25 mg PO DAILY 04/16/21 05/17/24 levothyroxine 75 mcg tablet 75 mcg PO DAILY 04/16/21 05/17/24 (Synthroid) omeprazole 40 mg capsule,delayed 40 mg PO DAILY 05/17/24 05/17/24 release Previous Rx's Medication Instructions Recorded amlodipine 5 mg tablet 5 mg PO DAILY #30 tabs 05/02/24 metoprolol succinate 25 mg 25 mg PO DAILY #30 tabs 05/02/24 tablet,extended release 24 hr ciprofloxacin HCl 500 mg tablet 500 mg PO BID #14 tabs 05/17/24 (Cipro) metronidazole 500 mg tablet 500 mg PO Q8H 7 days #21 tabs 05/17/24 ondansetron 4 mg disintegrating 4 mg PO Q6H PRN nausea and 05/17/24 tablet vomiting #14 tabs potassium chloride 20 mEq/15 mL 20 meq (15 mL) PO TID 5 days #225 05/17/24 oral liquid mL Allergies Allergy/AdvReac Type Severity Reaction Status Date / Time amoxicillin Allergy SWELLING Verified 05/02/24 15:16 metoclopramide [From Reglan] Allergy ADR-Hallucinating, Verified 05/02/24 15:16 SHAKING Penicillins Allergy SWELLING Verified 05/02/24 15:16 Review of Systems Const: Denies: fever(s), chills, body aches or change in appetite Eyes: Denies: blurry vision or eye discomfort ENMT: Denies: throat pain or dental pain Card: Denies: chest pain Resp: Denies: dyspnea GI: Reports: nausea and vomiting; Denies: diarrhea : Denies: dysuria Musc: Denies: neck pain or back pain Skin/Breast: Denies: rash Neuro: Denies: headache(s) PFSH ED PFSH: Medical History Hypertension Acquired hypothyroidism Family History Other CAD (coronary artery disease) Hyperlipidemia Social History Smoking and tobacco/nicotine status: never used tobacco/nicotine Physical Exam Const: COMMON NORMALS: no acute distress, patient oriented x3 and healthy appearing HENMT: COMMON NORMALS: normocephalic and atraumatic HEAD & SCALP: normocephalic and atraumatic Neck/C-Spine: COMMON NORMALS: full ROM and supple Chest: COMMONS NORMALS: normal inspection of the chest Resp: COMMON NORMALS: normal respiratory effort Cardio: COMMON NORMALS: regular rate, regular rhythm and No murmurs present (Cardio) RATE: regular rate RHYTHM: regular rhythm GI: COMMON NORMALS: Normal to inspection, nondistended, normoactive bowel sounds present, Soft to palpation, non-tender and no masses PALPATION: Yes Soft to palpation Extremity: COMMON NORMALS: normal to inspection and full ROM Neuro: COMMON NORMALS: patient oriented x3, moves all extremities and no focal motor deficits Psych: COMMON NORMALS: mental status grossly normal, Normal thought process present and cooperative THOUGHT PROCESS: Normal thought process present Skin: COMMON NORMALS: no rashes or lesions noted and no wounds GENERAL SKIN EXAM: no rashes or lesions noted Course Vital Signs: Vital signs: Vital Signs Temperature 98.8 F 05/17/24 10:56 Pulse Rate 90 05/17/24 13:21 Respiratory Rate 17 05/17/24 12:29 Blood Pressure 116/85 08/21/24 13:21 Pulse Oximetry 100 05/17/24 13:21 Oxygen Delivery Me thod Room Air 05/17/24 13:00 MDM - Nausea/Vomiting/Diarrhea Medical Decision Making Patient presents here with her vomiting she been having abdominal pain CT did show a colitis here she is also hypokalemic I did offer her admission as she does have hypokalemia with her colitis she states she feels much improved here after nausea meds and fluids she has been able to drink fluids as well and she wants to trial treatment at home we will place her on potassium supplement along with Cipro Flagyl and Zofran she is return if worsening she understands agrees to plan she is follow-up with PCP in 5 to 7 days for recheck Medical Records I reviewed the patient's medical records. Lab Data I reviewed the patient's lab results. 05/17/24 11:14 05/17/24 11:14 Radiology Impressions Abdomen/Pelvis CT 05/17/24 11:53 IMPRESSION: 1. Normal appendix. 2. No renal obstruction or pyelonephritis. 3. Muscularis and submucosal edema involving portions of the colon with no obstruction. Most significant changes at the hepatic flexure. This is probably related to acute colitis. There are additional central mesenteric lymph nodes which may be reactive. 4. Central mesenteric and RIGHT lower quadrant lymph nodes can be seen with mesenteric adenitis and may be reactive. 5. No ascites. 6. Prior cholecystectomy. 7. Mild hepatic steatosis. Laboratory Results WBC 8.66 10^3/uL (3.29-11.43) 05/17/24 11:14 RBC 6.23 10^6/uL (3.85-5.65) H 05/17/24 11:14 Hgb 14.10 g/dL (11.27-16.99) 05/17/24 11:14 Hct 45.9 % (36-47) 05/17/24 11:14 MCV 73.7 fl (85-98) L 05/17/24 11:14 MCH 22.6 pg (27-33) L 05/17/24 11:14 MCHC 30.7 g/dL (30-55) 05/17/24 11:14 RDW 16.3 % (12.1-15.1) H 05/17/24 11:14 Plt Count 515 10^3/cmm (157-399) H 05/17/24 11:14 MPV 8.6 fL (7.4-10.4) 05/17/24 11:14 Neut % (Auto) 67.3 % 05/17/24 11:14 Lymph % (Auto) 18.9 % 05/17/24 11:14 [place] % (Auto) 10.6 % 05/17/24 11:14 Eos % (Auto) 2.8 % 05/17/24 11:14 Baso % (Auto) 0.2 % 05/17/24 11:14 Neut # (Auto) 5.82 10^3/uL (1.8-7.7) 05/17/24 11:14 Lymph # (Auto) 1.6 10^3/uL (0.8-4.8) 05/17/24 11:14 [place] # (Auto) 0.9 10^3/uL (0.2-0.9) 05/17/24 11:14 Eos # (Auto) 0.2 10^3/uL (0.0-0.8) 05/17/24 11:14 Baso # (Auto) 0.0 10^3/uL (0.0-0.1) 05/17/24 11:14 Nucleated RBC % (auto) 0 % 05/17/24 11:14 Nucleated RBCs # 0.0 /100WBC 05/17/24 11:14 Sodium 136 mmol/L (136-145) 05/17/24 11:14 Potassium 2.7 mmol/L (3.5-5.1) L* 05/17/24 11:14 Chloride 99 mmol/L (98-107) 05/17/24 11:14 Carbon Dioxide 16 mmol/L (22-29) L 05/17/24 11:14 Anion Gap 23.7 (5-19) H 05/17/24 11:14 BUN 23 mg/dL (6-20) H 05/17/24 11:14 Creatinine 1.0 mg/dL (0.5-0.9) H 05/17/24 11:14 GFR Calculation 62.4 mL/min (90-130) L 05/17/24 11:14 Glucose 132 mg/dL (65-115) H 05/17/24 11:14 Calculated Osmolality 288 mOsm/kg (285-295) 05/17/24 11:14 Calcium 9.2 mg/dL (8.5-10.5) 05/17/24 11:14 Magnesium 2.0 mg/dL (1.7-2.3) 05/17/24 11:14 Total Bilirubin 0.5 mg/dL (0.15-1.2) 05/17/24 11:14 AST 56 U/L (0-32) H 05/17/24 11:14 ALT 68 U/L (0-33) H 05/17/24 11:14 Alkaline Phosphatase 81 U/L (35-105) 05/17/24 11:14 Total Protein 9.2 g/dL (6.6-8.7) H 05/17/24 11:14 Albumin 4.6 g/dL (3.5-5.2) 05/17/24 11:14 Globulin 4.6 g/dL (1.3-4.6) 05/17/24 11:14 Lipase 241 U/L (13-60) H 05/17/24 11:14 HCG, Qual Negative (Negative) 05/17/24 11:14 Urine Color Dark yellow (Yellow) A 05/17/24 11:13 Urine Appearance Turbid (CLEAR) A 05/17/24 11:13 Urine pH 6.5 (5-7) 05/17/24 11:13 Ur Specific [place] 1.032 (1.005-1.030) H 05/17/24 11:13 Urine Protein 3+ (Negative) A 05/17/24 11:13 Urine Glucose (UA) Negative (Normal) 05/17/24 11:13 Urine Ketones 1+ (Negative) H 05/17/24 11:13 Urine Blood Negative (Negative) 05/17/24 11:13 Urine Nitrate Negative (Negative) 05/17/24 11:13 Urine Bilirubin 2+ (Negative) H 05/17/24 11:13 Urine Urobilinogen 1.0 mg/dL (Negative) 05/17/24 11:13 Ur Leukocyte Esterase Trace (Negative) A 05/17/24 11:13 Urine RBC 11-20 /hpf (0-2) H 05/17/24 11:13 Urine WBC 11-20 /hpf (0-5) H 05/17/24 11:13 Ur Squamous Epith Cells >100 /hpf (0-5) H 05/17/24 11:13 Other Crystals Amonium biurate 2+ /hpf 05/17/24 11:13 Amorphous Sediment Not Reportable 05/17/24 11:13 Urine Bacteria 3+ /hpf (NONE) H 05/17/24 11:13 Urine Mucus Trace /hpf 05/17/24 11:13 All radiology interpretation(s) finalized by discharge Discharge Plan Discharge Patient Disposition: Home Clinical Impression: Colitis, Hypokalemia, Vomiting Condition: Stable Prescriptions: New metronidazole 500 mg tablet 500 mg PO Q8H 7 Days Qty: 21 0RF Cipro 500 mg tablet 500 mg PO BID Qty: 14 0RF ondansetron 4 mg tablet,disintegrating 4 mg PO Q6H PRN (Reason: nausea and vomiting) Qty: 14 0RF potassium chloride 20 mEq/15 mL liquid 20 meq PO TID 5 Days Qty: 225 0RF No Action cholecalciferol (vitamin D3) 1,250 mcg (50,000 unit) capsule 1,250 mcg PO .weekly Rx Instructions: Wednesday hydrochlorothiazide 25 mg tablet 25 mg PO DAILY levothyroxine [Synthroid] 75 mcg tablet 75 mcg PO DAILY acetaminophen [Tylenol] 325 mg Tablet 325 mg PO QID PRN (Reason: Pain) ibuprofen 200 mg Tablet 200 mg PO Q6H PRN (Reason: Pain) amlodipine 5 mg tablet 5 mg PO DAILY Qty: 30 0RF metoprolol succinate 25 mg tablet extended release 24 hr 25 mg PO DAILY Qty: 30 0RF omeprazole 40 mg capsule,delayed release(DR/EC) 40 mg PO DAILY Discharge Orders: Discharge ED (Routine); Ordered 05/17/24 Ordered By: Sandy Nieto Referrals: Jarek Membreno DO [Primary Care Provider] - 4-7 days Discharge Diet: Advance as tolerated Discharge Activity: Resume usual activity Patient Instructions: Hypokalemia (ED), Acute Nausea and Vomiting (ED), Colitis (ED) Coding Level of Care Code ED Reconciliation Machine Operator for Shireen Benitez
[2024-05-17] MEDS: sodium chloride 0.9% 1,000 ML 999 ML IV (11:23)
[2024-05-17 11:25] LABS: Basophils % 0.2 %; Eosinophils # 0.2 10^3/uL (0.0-0.8); Eosinophils % 2.8 %; Hematocrit 45.9 % (36-47); Lymphocytes # 1.6 10^3/uL (0.8-4.8); Lymphocytes % 18.9 %; Mean Corpuscular HGB Conc 30.7 g/dL (30-55); Mean Corpuscular Hemoglobin 22.6 pg (27-33); Mean Corpuscular Volume 73.7 fl (85-98); Mean Platelet Volume 8.6 fL (7.4-10.4); Monocytes # 0.9 10^3/uL (0.2-0.9); Monocytes % 10.6 %; Neutrophils # 5.82 10^3/uL (1.8-7.7); Neutrophils % 67.3 %; Nucleated Red Blood Cells % 0 %; Platelet Count 515 10^3/cmm (157-399); Red Blood Count 6.23 10^6/uL (3.85-5.65); Red Cell Distribution Width 16.3 % (12.1-15.1); White Blood Count 8.66 10^3/uL (3.29-11.43)
[2024-05-17] MEDS: ondansetron 2 mg/ML SDV 2 mL 4 MG IVP (11:25)
[2024-05-17 11:26] VITALS: BP 147/90; PULSE 93; RESP 18; O2SAT 98
[2024-05-17 11:38] LABS: Charge for UA Resulting for Rev
[2024-05-17 11:40] LABS: Bilirubin Urine 2+ (Negative); Blood Urine Negative (Negative); Glucose Urine UA Negative (Normal); Ketones Urine 1+ (Negative); Leukocyte Esterase Urine Trace (Negative); Nitrate Urine Negative (Negative); Protein Urine 3+ (Negative); Urine Appearance Turbid (CLEAR); Urine Color Dark Yellow (Yellow); pH Urine 6.5 (5-7)
[2024-05-17 11:43] LABS: HCG, Serum Qual Negative (Negative)
[2024-05-17 11:45] LABS: Alanine Aminotransferase 68 U/L (0-33); Albumin Level 4.6 g/dL (3.5-5.2); Alkaline Phosphatase 81 U/L (35-105); Anion Gap 23.7 (5-19); Aspartate Amino Transferase 56 U/L (0-32); Blood Urea Nitrogen 23 mg/dL (6-20); Calcium 9.2 mg/dL (8.5-10.5); Carbon Dioxide 16 mmol/L (22-29); Chloride 99 mmol/L (98-107); Creatinine Clr Calc Pharmacy 97.7982; Globulin 4.6 g/dL (1.3-4.6); Glomerular Filtration Rate 62.4 mL/min (90-130); Glucose 132 mg/dL (65-115); Lipase 241 U/L (13-60); Osmolality Calculated 288 mOsm/kg (285-295); Sodium 136 mmol/L (136-145); Total Bilirubin 0.5 mg/dL (0.15-1.2); Total Protein 9.2 g/dL (6.6-8.7)
[2024-05-17 11:48] LABS: Potassium 2.7 mmol/L (3.5-5.1)
[2024-05-17] MEDS: potassium chloride ER 20 mEq Tablet 60 MEQ PO (11:52)
--- NOTE | 2024-05-17 11:53 | CT_ITS ---
WS: [id number] CT ABDOMEN AND PELVIS WITH CONTRAST HISTORY: vomiting TECHNIQUE: Imaging performed of the abdomen and pelvis with IV contrast. Single phase imaging of the abdomen. Coronal and sagittal reformats are submitted. All CT scans at [facility] use at oc st one of these dose optimization techniques: automated exposure control; mA and/or kV adjustment per patient size (includes targeted exams where dose is matched to clinical indication); or iterative re construction. IV CONTRAST: Omnipaque 350; 100 mL IV. Oral contrast: No DLP: 1168.08 mGy.cm COMPARISON: 11/21/2019 Lower thorax: Lung bases are clear. Heart is normal size. Small hiatal hernia. Liver/biliary system: Liver is mildly enlarged with mild hepatic steatosis. No mass. Normal portal ve in. Normal common bile duct. Gallbladder: Status post cholecystectomy. Pancreas: Normal size pancreas and pancreatic duct. No adjacent inflammation. Spleen: Normal size spleen. No mass or infarct. Splenic granulomata. Adrenal glands: Normal. Right kidney: Normal. Left kidney: Normal. Aorta: Normal. Lymphadenopathy: Central mesenteric lymph nodes measure up to 12 mm in diameter. These lymph nodes ap pear to be new since the study from 2019. There are a few small lymph nodes also in the RIGHT lower q uadrant. Free fluid: None. GI tract: Normal stomach. No small bowel obstruction. Beginning within the hepatic flexure and extend ing through the transverse colon into the proximal descending colon there is pericolonic wall thicken ing and submucosal edema suggesting a mild colitis. Normal appendix. Abdominal wall: Unremarkable abdominal wall. No hernia. Pelvis: No free fluid or adenopathy within the pelvis. Uterus and both ovaries are normal. Bones: Unremarkable. CT/CT abdomen pelvis w con* [id number] IMPRESSION: 1. Normal appendix. 2. No renal obstruction or pyelonephritis. 3. Muscularis and submucosal edema involving portions of the colon with no obs truction. Most significant changes at the hepatic flexure. This is probably rel ated to acute colitis. There are additional central mesenteric lymph nodes whic h may be reactive. 4. Central mesenteric and RIGHT lower quadrant lymph nodes can be seen with me senteric adenitis and may be reactive. 5. No ascites. 6. Prior cholecystectomy. 7. Mild hepatic steatosis.
[2024-05-17 12:03] LABS: Specific Gravity, Urine 1.032 (1.005-1.030); UA Manual Slide Review YES; UA Slide Review UA Slide Review Perf
[2024-05-17 12:10] LABS: Add Urine Culture? Yes; Bacteria Urine 3+ /hpf; Mucus Urine TRACE /hpf; Other Crystals Urine AMONIUM BIURATE 2+ /hpf; Squamous Epithelial Cell Urine >100 /hpf (0-5)
[2024-05-17] MEDS: iohexol 350 mg/mL 500 mL Btl (per mL) IV (12:23)
[2024-05-17 12:29] VITALS: BP 153/98; PULSE 84; RESP 17; O2SAT 100
[2024-05-17 12:30] VITALS: PULSE 80; O2SAT 100
[2024-05-17 13:00] VITALS: BP 114/63; PULSE 82; O2SAT 100
[2024-05-17] MEDS: ciprofloxacin 500 mg Tablet PO (13:09)
[2024-05-17] MEDS: metroNIDAZOLE 500 MG Tablet PO (13:09)
[2024-05-17 13:21] VITALS: BP 116/85; PULSE 90; O2SAT 100
== END 2024-05-17 13:22 | disposition home or self-care (01) ==
PROVIDERS: Emergency Provider Emergency Medicine; PCP Electrodiagnostic Medicine
DX: K52.9 Noninfective gastroenteritis and colitis, unspecified (principal); E87.6 Hypokalemia; R11.11 Vomiting without nausea; I10 Essential (primary) hypertension
CPT/HCPCS: 74177; 80053; 81003; 81015; 83690; 83735; 84703; 85025; 87077; 87086; 87186; 96361; 96374; 99285; J2405; J7030; Q9967

== ENCOUNTER 2024-06-16 11:38 | Outpatient (CLI) | payer OTHER, SELFPAY ==
--- NOTE | 2024-06-16 11:43 | USCV_ITS ---
Kristen Ball Age: 39 Gender: F : 1985 Exam Date: 06/16/2024 12:11 Ordering Phys: Jarek Membreno DO Technologist: CT Exam Location: [facility] [place] Indication: palpitations BP: 129 / 77 HR: 87 Rhythm: Sinus Technical Quality: Adequate MEASUREMENTS (Male / Female) Normal Values 2D ECHO LVOT Diameter 2.1 cm LV Ejection Fraction MOD 4C 59.5 % LV Ejection Fraction MOD 2C 46.5 % LV Ejection Fraction 2C AL 45.7 % LA Diameter 3.6 cm RA Systolic Volume 4C AL 57.8 ml RA Systolic Volume 4C MOD 57.7 ml LA Sys Volume AL 86.2 cm cubed LA Sys Volume Index AL 38.6 cm cubed/m squared Aorta at Sinotubular Diameter 2.5 cm IVC Diameter 1.6 cm M-MODE LA Ao Ratio MM 1.5 AV Cusp Separation MM 2.2 cm DOPPLER AV Peak Velocity 160.0 cm/s LVOT Peak Velocity 128.0 cm/s AV Area Cont Eq vti 3.0 cm squared AV Area Cont Eq pk 2.7 cm squared MV Peak Velocity 101.0 cm/s MV Area PHT 4.8 cm squared Mitral E to A Ratio 0.8 TR Peak Velocity 146.0 cm/s TR Peak Gradient 8.5 mmHg TV Peak E Velocity 66.0 cm/s Right Atrial Pressure 3.0 mmHg Pulmonary Artery Systolic Pressu 11.5 mmHg PV Peak Velocity 125.5 cm/s FINDINGS Left Ventricle Normal LV size and ejection fraction of 55%.((visual). Mild hypokinesia of the basal inferior wall segment.Grade I/IV diastolic dysfunction (abnormal relaxation filling pattern), normal to mildly elevated filling pressures. Right Ventricle The right ventricle is normal in size and function. Right Atrium The right atrium is normal in size. Left Atrium The left atrium is normal in size. Mitral Valve No gross abnormalities noted Aortic Valve Thickened aortic valve.trace to mild aortic valve regurgitation. Tricuspid Valve No gross abnormalities noted Pulmonic Valve No gross abnormalities noted Pericardium Normal pericardium without effusion. Aorta Normal ascending aorta dimension. IVC The inferior vena cava appears normal. CONCLUSIONS Normal LV size and ejection fraction of 55%.((visual). Mild hypokinesia of the basal inferior wall segment.Grade I/IV diastolic dysfunction (abnormal relaxation filling pattern), normal to mildly elevated filling pressures. Thickened aortic valve.trace to mild aortic valve regurgitation. There is no pericardial effusion. There are no intracardiac masses. Compared to the study from 03/18/2021 the wall motion abnormality appears to be slightly more prominent. May require further workup, if clinically indicated Dr Nereyda Leon MD FACC (Electronically Signed) Final Date: 17 June 2024 15:04 S
== END 2024-06-16 11:39 | disposition home or self-care (01) ==
LOC: RAD 11:39
PROVIDERS: PCP Electrodiagnostic Medicine; Visit Provider Electrodiagnostic Medicine
DX: I50.30 Unspecified diastolic (congestive) heart failure (principal); I35.2 Nonrheumatic aortic (valve) stenosis with insufficiency
CPT/HCPCS: 93306

== ENCOUNTER 2024-06-27 18:42 | Emergency (ER) | payer OTHER, SELFPAY ==
--- NOTE | 2024-06-27 18:45 | ECG_ITS ---
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 Measurements Intervals [place] Rate: 102 P: 56 [place]: 144 QRS: 31 QRSD: 87 T: 29 QT: 346 QTc: 453 Interpretive Statements SINUS TACHYCARDIA POSSIBLE LEFT ATRIAL ENLARGEMENT [-0.1mV P-WAVE IN V1/V2] ABNORMAL RHYTHM ECG Compared to ECG 05/02/2024 16:52:33 T-wave abnormality no longer present Electronically Signed On 06-28-2024 23:37:01 CDT by Nereyda Leon M.D. [id number]
[2024-06-27 18:48] VITALS: BP 157/74; PULSE 101; RESP 18; TEMP 36.8; O2SAT 100; BMI 47.8
--- NOTE | 2024-06-27 19:04 | XRR_ITS ---
PROCEDURE INFORMATION: Exam: XR Chest Exam date and time: 06/27/2024 7:09 PM Age: 39 years old Clinical indication: Pain; Chest pressure; Additional info: Cp TECHNIQUE: Imaging protocol: Radiologic exam of the chest. Views: 1 view. COMPARISON: CR XR chest 1V portable [id number] 05/02/2024 3:43 PM FINDINGS: Lungs: Unremarkable. No consolidation. Pleural spaces: Unremarkable. No pleural effusion. No pneumothorax. Heart/Mediastinum: Unremarkable. No cardiomegaly. Bones/joints: Unremarkable. XR/XR chest 1V portable [id number] IMPRESSION: No acute findings.
--- NOTE | 2024-06-27 19:07 | ED_ITS ---
HPI - Arrhythmia/Palpitations 2 General: Chief Complaint: Arrhythmia/Palpitations Stated Complaint: Palpations Time Seen by Provider: 06/27/24 18:48 Source: patient Mode of arrival: ambulatory Limitations: no limitations History of Present Illness: 39-year-old female states that she has b een having intermittent palpitations going on for some time. She states she has been seen here couple times for it she seen her PCP she had a heart monitor she had more recently and she had a recent echo as well she is unsure what the results were. States today she started to feel like her heart was racing and felt like it was skipping a beat she is having some slight anxiety she is having chest pain as well. She denies any worse improving factors. Associated symptoms: Deny nausea or vomiting Related Data Home Medications Medication Instructions Recorded Confirmed acetaminophen 325 mg tablet 325 mg PO QID PRN Pain 11/21/19 05/17/24 (Tylenol) ibuprofen 200 mg tablet 200 mg PO Q6H PRN Pain 11/21/19 05/17/24 cholecalciferol (vitamin D3) 1,250 1,250 mcg PO .weekly 04/16/21 05/17/24 mcg (50,000 unit) capsule hydrochlorothiazide 25 mg tablet 25 mg PO DAILY 04/16/21 05/17/24 levothyroxine 75 mcg tablet 75 mcg PO DAILY 04/16/21 05/17/24 (Synthroid) omeprazole 40 mg capsule,delayed 40 mg PO DAILY 05/17/24 05/17/24 release Previous Rx's Medication Instructions Recorded amlodipine 5 mg tablet 5 mg PO DAILY #30 tabs 05/02/24 metoprolol succinate 25 mg 25 mg PO DAILY #30 tabs 05/02/24 tablet,extended release 24 hr ciprofloxacin HCl 500 mg tablet 500 mg PO BID #14 tabs 05/17/24 (Cipro) ondansetron 4 mg disintegrating 4 mg PO Q6H PRN nausea and 05/17/24 tablet vomiting #14 tabs Allergies Allergy/AdvReac Type Severity Reaction Status Date / Time amoxicillin Allergy SWELLING Verified 05/02/24 15:16 metoclopramide [From Reglan] Allergy ADR-Hallucinating, Verified 05/02/24 15:16 SHAKING Penicillins Allergy SWELLING Verified 05/02/24 15:16 Review of Systems 2 Const: Denies: fever(s), chills, body aches or change in appetite ENMT: Denies: throat pain or dental pain Card: Reports: chest pain and palpitations Resp: Reports: dyspnea GI: Denies: abdominal pain, nausea, vomiting or diarrhea : Denies: dysuria Musc: Denies: neck pain or back pain Skin/Breast: Denies: rash Neuro: Denies: headache(s) PFSH ED 2 PFSH: Medical History Hypertension Acquired hypothyroidism Family History Other CAD (coronary artery disease) Hyperlipidemia Social History Smoking and tobacco/nicotine status: never used tobacco/nicotine Physical Exam 2 Const: COMMON NORMALS: no acute distress, patient oriented x3 and healthy appearing HENMT: COMMON NORMALS: normocephalic and atraumatic HEAD & SCALP: n ormocephalic and atraumatic Eye: COMMON NORMALS: conjunctivae normal CONJUNCTIVA: Yes conjunctivae normal Neck/C-Spine: COMMON NORMALS: full ROM and supple Chest: COMMONS NORMALS: normal inspection of the chest and normal palpation of entire chest wall Resp: COMMON NORMALS: normal respiratory effort, No retractions, No use of accessory muscles and clear to auscultation bilaterally AUSCULTATION: clear to auscultation bilaterally Cardio: COMMON NORMALS: regular rhythm and No murmurs present (Cardio) R ATE: tachycardic RHYTHM: regular rhythm Extremity: COMMON NORMALS: normal to inspection and full ROM Neuro: COMMON NORMALS: patient oriented x3, moves all extremities and no focal motor deficits Psych: COMMON NORMALS: mental status grossly normal, Normal thought process present and cooperative THOUGHT PROCESS: Normal thought process present Skin: COMMON NORMALS: no rashes or lesions noted and no wounds GENERAL SKIN EXAM: no rashes or lesions noted Course 2 Vital Signs: Vital signs: Vital Signs Temperature 98.2 F 06/27/24 18:48 Pulse Rate 92 06/27/24 21:04 Respiratory Rate 17 06/27/24 20:30 Blood Pressure 149/80 06/27/24 21:04 Pulse Oximetry 98 06/27/24 21:04 Oxygen Delivery Me thod Room Air 06/27/24 20:30 MDM - Arrhythmia/Palpitations Medical Decision Making Patient presents with palpitations imaging blood work here is all normal troponin EKG D-dimer all negative patient's stable for discharge she is to follow back up with her PCP return if worsening she understands agrees to plan Medical Records I reviewed the patient's medical records. Lab Data I reviewed the patient's lab results. 06/27/24 19:15 06/27/24 19:15 Radiology Impressions Chest X-Ray 06/27/24 19:04 IMPRESSION: No acute findings. Laboratory Results WBC 8.82 10^3/uL (3.29-11.43) 06/27/24 19:15 RBC 4.47 10^6/uL (3.85-5.65) 06/27/24 19:15 Hgb 10.20 g/dL (11.27-16.99) L 06/27/24 19:15 Hct 34.9 % (36-47) L 06/27/24 19:15 MCV 78.1 fl (85-98) L 06/27/24 19:15 MCH 22.8 pg (27-33) L 06/27/24 19:15 MCHC 29.2 g/dL (30-55) L 06/27/24 19:15 RDW 16.9 % (12.1-15.1) H 06/27/24 19:15 Plt Count 433 10^3/cmm (157-399) H 06/27/24 19:15 MPV 8.5 fL (7.4-10.4) 06/27/24 19:15 Neut % (Auto) 61.7 % 06/27/24 19:15 Lymph % (Auto) 29.7 % 06/27/24 19:15 [place] % (Auto) 5.0 % 06/27/24 19:15 Eos % (Auto) 3.1 % 06/27/24 19:15 Baso % (Auto) 0.3 % 06/27/24 19:15 Neut # (Auto) 5.44 10^3/uL (1.8-7.7) 06/27/24 19:15 Lymph # (Auto) 2.6 10^3/uL (0.8-4.8) 06/27/24 19:15 [place] # (Auto) 0.4 10^3/uL (0.2-0.9) 06/27/24 19:15 Eos # (Auto) 0.3 10^3/uL (0.0-0.8) 06/27/24 19:15 Baso # (Auto) 0.0 10^3/uL (0.0-0.1) 06/27/24 19:15 Nucleated RBC % (auto) 0 % 06/27/24 19:15 Nucleated RBCs # 0.0 /100WBC 06/27/24 19:15 D-Dimer 0.33 ug/mLFEU (0-0.59) 06/27/24 19:15 Sodium 139 mmol/L (136-145) 06/27/24 19:15 Potassium 3.7 mmol/L (3.5-5.1) 06/27/24 19:15 Chloride 104 mmol/L (98-107) 06/27/24 19:15 Carbon Dioxide 22 mmol/L (22-29) 06/27/24 19:15 Anion Gap 16.7 (5-19) 06/27/24 19:15 BUN 12 mg/dL (6-20) 06/27/24 19:15 Creatinine 0.5 mg/dL (0.5-0.9) 06/27/24 19:15 GFR Calculation 138.8 mL/min (90-130) H 06/27/24 19:15 Glucose 99 mg/dL (65-115) 06/27/24 19:15 Calculated Osmolality 288 mOsm/kg (285-295) 06/27/24 19:15 Calcium 9.2 mg/dL (8.5-10.5) 06/27/24 19:15 Total Bilirubin 0.3 mg/dL (0.15-1.2) 06/27/24 19:15 AST 53 U/L (0-32) H 06/27/24 19:15 ALT 69 U/L (0-33) H 06/27/24 19:15 Alkaline Phosphatase 67 U/L (35-105) 06/27/24 19:15 Troponin T Baseline < 6 ng/L (0-10) 06/27/24 19:15 Troponin T 120 Minute Cancelled 06/27/24 20:52 Delta Troponin T Cancelled 06/27/24 20:52 Total Protein 7.5 g/dL (6.6-8.7) 06/27/24 19:15 Albumin 4.2 g/dL (3.5-5.2) 06/27/24 19:15 Globulin 3.3 g/dL (1.3-4.6) 06/27/24 19:15 TSH 13.95 uIU/mL (0.27-4.20) H 06/27/24 19:15 All radiology interpretation(s) finalized by discharge EKG Data EKG 1: I personally reviewed and interpreted this EKG as follows: EKG interpretation date: 06/27/24 EKG interpretation time: 18:48 Interpretation: sinus tach hr [address] elevation qrs 87 qtc 405 Other EKG comments: Chest X-Ray 06/27/24 19:04 IMPRESSION: No acute findings. Discharge Plan Discharge Patient Disposition: Home Clinical Impression: Heart palpitations, Chest pain Condition: Stable Prescriptions: No Action cholecalciferol (vitamin D3) 1,250 mcg (50,000 unit) capsule 1,250 mcg PO .weekly Rx Instructions: Wednesday hydrochlorothiazide 25 mg tablet 25 mg PO DAILY levothyroxine [Synthroid] 75 mcg tablet 75 mcg PO DAILY acetaminophen [Tylenol] 325 mg Tablet 325 mg PO QID PRN (Reason: Pain) ibuprofen 200 mg Tablet 200 mg PO Q6H PRN (Reason: Pain) amlodipine 5 mg tablet 5 mg PO DAILY Qty: 30 0RF metoprolol succinate 25 mg tablet extended release 24 hr 25 mg PO DAILY Qty: 30 0RF Cipro 500 mg tablet 500 mg PO BID Qty: 14 0RF ondansetron 4 mg tablet,disintegrating 4 mg PO Q6H PRN (Reason: nausea and vomiting) Qty: 14 0RF omeprazole 40 mg capsule,delayed release(DR/EC) 40 mg PO DAILY Discharge Orders: Discharge ED (Routine); Ordered 06/27/24 Ordered By: Sandy Nieto Referrals: Jarek Membreno DO [Primary Care Provider] - 4-7 days Discharge Diet: Advance as tolerated Discharge Activity: Resume usual activity Patient Instructions: Chest Pain (ED), Heart Palpitations (ED) Coding Level of Care Code 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
[2024-06-27 19:18] VITALS: BP 144/92; PULSE 88; RESP 17; O2SAT 99
--- NOTE | 2024-06-27 19:22 | PC.NURSE ---
pt refused Ativan, Dr. Nieto notified.
[2024-06-27 19:28] VITALS: BP 124/76; PULSE 95; RESP 19; O2SAT 98
--- NOTE | 2024-06-27 19:29 | PC.NURSE ---
Pt BP 124/76. Dr. Nieto notified, holding Labetalol.
[2024-06-27 19:42] LABS: Basophils % 0.3 %; Eosinophils # 0.3 10^3/uL (0.0-0.8); Eosinophils % 3.1 %; Hematocrit 34.9 % (36-47); Lymphocytes # 2.6 10^3/uL (0.8-4.8); Lymphocytes % 29.7 %; Mean Corpuscular HGB Conc 29.2 g/dL (30-55); Mean Corpuscular Hemoglobin 22.8 pg (27-33); Mean Corpuscular Volume 78.1 fl (85-98); Mean Platelet Volume 8.5 fL (7.4-10.4); Monocytes # 0.4 10^3/uL (0.2-0.9); Neutrophils # 5.44 10^3/uL (1.8-7.7); Neutrophils % 61.7 %; Nucleated Red Blood Cells % 0 %; Platelet Count 433 10^3/cmm (157-399); Red Blood Count 4.47 10^6/uL (3.85-5.65); Red Cell Distribution Width 16.9 % (12.1-15.1); White Blood Count 8.82 10^3/uL (3.29-11.43)
[2024-06-27 19:50] LABS: Troponin(5th) Baseline < 6 ng/L (0-10)
[2024-06-27 19:59] LABS: Alanine Aminotransferase 69 U/L (0-33); Albumin Level 4.2 g/dL (3.5-5.2); Alkaline Phosphatase 67 U/L (35-105); Anion Gap 16.7 (5-19); Aspartate Amino Transferase 53 U/L (0-32); Blood Urea Nitrogen 12 mg/dL (6-20); Calcium 9.2 mg/dL (8.5-10.5); Carbon Dioxide 22 mmol/L (22-29); Chloride 104 mmol/L (98-107); Creatinine Clr Calc Pharmacy 195.5964; Globulin 3.3 g/dL (1.3-4.6); Glomerular Filtration Rate 138.8 mL/min (90-130); Glucose 99 mg/dL (65-115); Osmolality Calculated 288 mOsm/kg (285-295); Potassium 3.7 mmol/L (3.5-5.1); Sodium 139 mmol/L (136-145); Total Bilirubin 0.3 mg/dL (0.15-1.2); Total Protein 7.5 g/dL (6.6-8.7)
[2024-06-27 20:00] VITALS: BP 133/79; PULSE 85; RESP 20; O2SAT 99
[2024-06-27 20:00] LABS: Thyroid Stimulating Hormone 13.95 uIU/mL (0.27-4.20)
[2024-06-27 20:30] VITALS: BP 128/80; PULSE 90; RESP 17; O2SAT 97
[2024-06-27 20:48] LABS: D Dimer 0.33 ug/mLFEU (0-0.59)
[2024-06-27 21:04] VITALS: BP 149/80; PULSE 92; O2SAT 98
--- NOTE | 2024-06-27 21:04 | PC.NURSE ---
this nurse told Dr. Nieto that 2 hr trop was just drawn, Dr. Nieto stated to cancel to 2 hr trop and DC.
== END 2024-06-27 21:05 | disposition home or self-care (01) ==
PROVIDERS: Emergency Provider Emergency Medicine; PCP Electrodiagnostic Medicine
DX: R00.2 Palpitations (principal); R07.9 Chest pain, unspecified; R00.0 Tachycardia, unspecified; I10 Essential (primary) hypertension
CPT/HCPCS: 71045; 80053; 84443; 84484; 85025; 85378; 93005; 99285

== ENCOUNTER → 2024-08-16 14:36 | Outpatient (BNVA) | payer OTHER, SELFPAY | PROVIDERS: PCP Electrodiagnostic Medicine; Visit Provider Internal Medicine | DX: R00.2 Palpitations (principal) | CPT/HCPCS: 93005 ==

== ENCOUNTER → 2024-10-24 11:20 | Outpatient (BNVA) | payer OTHER, SELFPAY | PROVIDERS: PCP Electrodiagnostic Medicine; Visit Provider Internal Medicine | DX: E03.9 Hypothyroidism, unspecified (principal); E07.9 Disorder of thyroid, unspecified; R63.5 Abnormal weight gain; R00.0 Tachycardia, unspecified | CPT/HCPCS: 36415; 80053; 82306; 82310; 83970; 84439; 84443; 86376; 86800 ==

== ENCOUNTER 2025-04-30 11:55 | Outpatient (CLI) | payer OTHER, SELFPAY ==
[2025-04-30 12:23] VITALS: BMI 53.1
--- NOTE | 2025-04-30 12:28 | ECG_ITS ---
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 Interpretive Statements Lung unchanged pre/post procedure; Intraprocedure shortess of breath; Symptoms resoled by discharge PROCEDURE: At the baseline, the patient's blood pressure was 138/98 with a heart rate of 103. The baseline electrocardiogram showed normal sinus rhythm with normal ST-Ts.. The patient exercised for 6 minutes on a standard Sami protocol. Patient attained a maximum heart rate of 176 beats per minute(96% of the maximum predicted heart rate) with a blood pressure at the peak exercise of 151/96 mm Hg. The EKG at the peak exercise revealed no significant changes. Patient did not have any chest pain or any significant cardiac arrhythmias with the exercise During the recovery phase, there were no new changes. Blood pressure at the end of the recovery phase was 147/90 mm Hg with a heart rate of 109 per minute. CONCLUSION: 1. No significant EKG changes with the treadmill exercise. 2. No exercise-induced chest pain or cardiac arrhythmia 3. Slightly impaired exercise tolerance, attained a maximum of 7.0 METs Electronically Signed On 05-08-2025 11:11:45 CDT by Nereyda Leon M.D. [email or web address]
[2025-04-30 12:50] VITALS: BP 140/76; PULSE 99
== END 2025-04-30 11:56 | disposition home or self-care (01) ==
LOC: CDL 11:59
PROVIDERS: PCP Electrodiagnostic Medicine; Visit Provider Internal Medicine
DX: I47.20 Ventricular tachycardia, unspecified (principal)
CPT/HCPCS: 93017